=== PATIENT | male | born 1970 | race Caucasian/White ===

== ENCOUNTER 2024-07-22 09:57 | Emergency (ER) | payer BC, SELFPAY ==
[2024-07-22] VITALS (9 sets, daily range): BP systolic 154–220; BP diastolic 78–142; PULSE 48–64; RESP 18–20; TEMP 36.8; O2SAT 99–100
--- NOTE | 2024-07-22 10:06 | ECG_ITS ---
Test Date: 2024-07-22 10:19:36 Measurements Intervals [place] Rate: 55 P: 9 ID: [id number] QRS: 31 QRSD: 110 T: 44 QT: 460 QTc: 442 Interpretive Statements SINUS BRADYCARDIA POSSIBLE LEFT ATRIAL ENLARGEMENT [-0.1mV P WAVE IN V1/V2] POSSIBLE LEFT VENTRICULAR HYPERTROPHY [VOLTAGE CRITERIA PLUS LAE OR QRS WIDENING] No previous ECG available for comparison Electronically Signed On 07-23-2024 14:22:10 CDT by Caden Green M.D.
--- NOTE | 2024-07-22 10:13 | ED.GENADULT ---
HPI - General Adult General Chief complaint: Unspecified Stated complaint: high blood pressure History of Present Illness HPI narrative: 53-year-old male presenting to the emergency department for evaluation for hypertension. Patient has had issues with blood pressure issues over the last few days reportedly per snf and did have his amlodipine increased yesterday. Patient was found to have an elevated blood pressure this morning but denies any pain or complaints. Related Data Allergies Allergy/AdvReac Type Severity Reaction Status Date / Time No Known Allergies Allergy Verified 07/22/24 10:37 Review of Systems Review of Systems: All systems reviewed & are unremarkable except as noted in HPI and below Exam Narrative: APPEARANCE: Well appearing, no pain, no distress, well-nourished. HEAD: normocephalic, atraumatic. EYES: PERRLA/EOMI, conjunctivae clear. NOSE: Normal no drainage EARS:TMS clear with good light reflex. THROAT: Pharynx clear, no exudate. NECK: Supple. No adenopathy, no masses. RESPIRATORY: Airway patent, respirations nonlabored. Clear to auscultation bilaterally, no rales, rhonchi, wheezing. CARDIOVASCULAR: Regular rate and rhythm without murmurs rubs or gallops. ABDOMINAL: Large pannus with chronic thickening of the skin with no evidence of cellulitis MUSCULOSKELETAL: Moves all extremities. Strength/ROM intact, No edema, No calf tenderness. NEURO: Alert. Cranial nerves II through XII intact. Grossly intact SKIN: Warm, dry. Normal Color Course Course Emergency Course: Patient's blood pressure was improved treatment and patient was discharged to his care facility for outpatient follow-up Vital Signs Vital signs: Vital Signs Temperature 98.3 F 07/22/24 09:59 Respiratory Rate 18 07/22/24 09:59 Pulse Oximetry 100 07/22/24 09:59 Oxygen Delivery Room Air 07/22/24 09:59 Temperature 98.3 F 07/22/24 09:59 Pulse Rate 64 07/22/24 14:41 Respiratory Rate 18 07/22/24 14:41 Blood Pressure 154/78 H 07/22/24 14:41 Pulse Oximetry 100 07/22/24 14:41 Oxygen Delivery Room Air 07/22/24 09:59 Medical Decision Making MDM Narrative Medical decision making narrative: 53-year-old male presenting emergency department for evaluation for elevated blood pressure. Patient's initial blood pressure was 220/140 but did improved to 160/100. I attempted to page the patient's primary care physician multiple times did not get any call back. Since patient's blood pressure was significantly improved and they are currently working to change his blood pressure I did not make any changes to his home medications. Patient had no acute abnormalities on his CBC CMP or EKG. Differential Diagnosis Differential Diagnosis: Hypertension, hypertensive crisis Vital Signs Vital Signs: Vital Signs Temperature 98.3 F 07/22/24 09:59 Respiratory Rate 18 07/22/24 09:59 Pulse Oximetry 100 07/22/24 09:59 Oxygen Delivery Room Air 07/22/24 09:59 Temperature 98.3 F 07/22/24 09:59 Pulse Rate 64 07/22/24 14:41 Respiratory Rate 18 07/22/24 14:41 Blood Pressure 154/78 H 07/22/24 14:41 Pulse Oximetry 100 07/22/24 14:41 Oxygen Delivery Room Air 07/22/24 09:59 Lab Data Lab results reviewed: Yes I reviewed the patient's lab results. 07/22/24 10:49 07/22/24 10:49 Labs: Lab Results 07/22/24 Range/Units 10:49 WBC 5.0 (4.5-10.0) K/mm3 RBC 4.72 (4.6-6.20) M/mm3 Hgb 13.6 L (14.0-18.0) g/dL Hct 41.9 L (42.0-52.0) % MCV 88.8 (80-100) fl MCH 28.8 (26-34) pg MCHC 32.5 (32-36) g/dl RDW 13.8 (11.5-14.5) % Plt Count 190 (150-375) k/mm3 MPV 9.8 (7.4-10.4) fl Immature Gran % (Auto) 0.4 (0-0.5) % Neut % (Auto) 66.4 (45.5-73.1) % Lymph % (Auto) 25.0 (18.3-44.2) % [place] % (Auto) 5.2 (2.6-8.5) % Eos % (Auto) 2.6 (0-4.4) % Baso % (Auto) 0.4 (0.2-1.2) % Lymph # (Auto) 1.25 (0.9-3.2) K/mm3 [place] #
[2024-07-22] MEDS: hydrALAZINE HCL 20 MG/ML VIAL 10 MG IV PUSH ×2 (10:35→14:03)
[2024-07-22 10:59] LABS: Basophils Percent Auto 0.4 % (0.2-1.2); Eosinophils Absolute Auto 0.1 K/mm3 (0-0.3); Eosinophils Percent Auto 2.6 % (0-4.4); Hematocrit 41.9 % (42.0-52.0); Hemoglobin 13.6 g/dL (14.0-18.0); Immature Granulocyte Absolute 0.02 K/mm3 (0.00-0.031); Immature Granulocyte Percent A 0.4 % (0-0.5); Lymphocytes Absolute Auto 1.25 K/mm3 (0.9-3.2); Mean Corpuscular HGB Conc 32.5 g/dl (32-36); Mean Corpuscular Hemoglobin 28.8 pg (26-34); Mean Corpuscular Volume 88.8 fl (80-100); Mean Platelet Volume 9.8 fl (7.4-10.4); Monocytes Absolute Auto 0.3 K/mm3 (0.1-0.6); Monocytes Percent Auto 5.2 % (2.6-8.5); Neutrophils Absolute Auto 3.3 K/mm3 (1.3-6.7); Neutrophils Percent Auto 66.4 % (45.5-73.1); Platelet Count Result 190 k/mm3 (150-375); Red Blood Count 4.72 M/mm3 (4.6-6.20); Red Cell Distribution Width 13.8 % (11.5-14.5)
[2024-07-22 11:14] LABS: Alanine Aminotransferase 10 U/L (6-50); Albumin Level 3.4 g/dL (3.5-5.1); Alkaline Phosphatase 70 U/L (38-126); Anion Gap 8 mmol/L (4-12); Aspartate Amino Transferase 19 U/L (17-59); Bilirubin,Total 0.5 mg/dL (0.2-1.3); Blood Urea Nitrogen 25 mg/dL (9-20); Calcium 8.4 mg/dL (8.4-10.2); Carbon Dioxide 24 mmol/L (22-30); Chloride 106 mmol/L (98-107); Estimated CRCL calculation 42 ml/min; Estimated Glomerular Filt Rate 43; Glucose 100 mg/dL (65-110); Potassium 3.9 mmol/L (3.4-5.0); Sodium 138 mmol/L (137-145)
== END 2024-07-22 15:14 ==
PROVIDERS: Emergency Provider Emergency Medicine; PCP Hospitalist
DX: I10 Essential (primary) hypertension (principal); R00.1 Bradycardia, unspecified; R94.31 Abnormal electrocardiogram [ECG] [EKG]
CPT/HCPCS: 36415; 80053; 85025; 93005; 96374; 96376; 99284; J0360